=== PATIENT | male | born 1960 | race Hispanic/Latino ===

== ENCOUNTER 2019-02-02 01:45 | Emergency (ER) | payer SELFPAY ==
[~2019-02-02] VITALS: Ht 165.1 cm; Wt 80.0 kg
[~2019-02-02 01:45] MED LIST: ALEVE220 M2 OR; ASPIRIN81 MG PO; BACTRIM DS1 TAB PO; BACTROBAN TOP; BENADRYL 50MG C50 MG OR; DID NOT BRING MEDS; FLEXERIL10 MG OR; LOPRESSOR25 MG PO; LORTAB 5 OR; LORTAB5 OR; MEDDOSEPAK OR; NAPROXEN375 MG OR; NO HOME MEDS; ULTRAM50 M1 PO; VALIUM5 MG OR; ZOVIRAX800 MG OR
[2019-02-02] MEDS ORDERED: LISINOPRIL20 MG PO (01:58)
[2019-02-02 02:49] LABS: HEMATOCRIT 39.3 % (39.0-50.0); HEMOGLOBIN 13.7 g/dl (14.0-18.0); MEAN CELL VOLUME 90.3 fL CALC (80.0-100.0); MEAN CORPUSCULAR HGB 31.5 pG CALC (26.0-32.0); MEAN CORPUSCULAR HGB CONC 34.9 g/L CALC (32.0-36.0); NEUT# 1.83 thou/uL (1.82-7.42); RED BLOOD COUNT 4.35 mill/uL (4.70-6.10)
[2019-02-02 03:01] LABS: ALBUMIN 4.2 g/dL (3.2-5.0); ALKALINE PHOSPHATASE 156 u/l (38-126); ANION GAP 13 (6-22 (CALC)); BILIRUBIN, TOTAL 1.2 mg/dL (0.0-1.4); BUN 14 mg/dL (9-20); BUN/CREATININE RATIO 26 (12-20 (CALC)); CARBON DIOXIDE 25 mmol/l (22-30); CHLORIDE 104 mmol/l (95-108); CREATININE 0.5 mg/dL (0.7-1.3); GFR > 60 ML/MIN (>=60 (CALC)); GFR FOR AFR.AMER. > 60 ML/MIN (>=60 (CALC)); POTASSIUM 3.3 mmol/l (3.5-5.1); SGOT/AST 91 u/l (17-59); SODIUM 139 mmol/l (137-146); TOTAL PROTEIN 7.7 g/dL (6.3-8.2)
[2019-02-02] MEDS ORDERED: FIORICET PO (03:56)
[2019-02-02] MEDS ORDERED: GENTAMICIN SULF5 ML OU (03:56)
[2019-02-02 03:57] VITALS: BP 157/79
== END 2019-02-02 03:57 | disposition home or self-care (01) | DRG 103 ==
LOC: ED 01:45
PROVIDERS: Emergency Medicine
DX: G43.909 Migraine, unspecified, not intractable, without status migrainosus (principal); H10.9 Unspecified conjunctivitis; I10 Essential (primary) hypertension

== ENCOUNTER 2020-02-29 01:10 | Emergency (ER) | payer SELFPAY ==
[~2020-02-29] VITALS: Ht 165.1 cm; Wt 63.6 kg
[~2020-02-29 01:10] MED LIST changes: +FIORICET PO; +GENTAMICIN SULF5 ML OU; +LISINOPRIL20 MG PO
[2020-02-29 02:05] LABS: HEMATOCRIT 39.9 % (39.0-50.0); HEMOGLOBIN 13.7 g/dl (14.0-18.0); MEAN CELL VOLUME 91.7 fL CALC (80.0-100.0); MEAN CORPUSCULAR HGB 31.5 pG CALC (26.0-32.0); MEAN CORPUSCULAR HGB CONC 34.3 g/dL CAL (32.0-36.0); NEUT# 2.01 thou/uL (1.82-7.42); RED BLOOD COUNT 4.35 mill/uL (4.70-6.10); RED CELL DISTRI WIDTH 11.9 % (11.5-15.5)
[2020-02-29 02:05] LABS: URINE BILIRUBIN - DIPSTICK NEGATIVE (NEGATIVE); URINE BLOOD DIPSTICK SMALL (NEGATIVE); URINE COLOR YELLOW; URINE GLUCOSE - DIPSTICK NEGATIVE (NEGATIVE); URINE KETONE NEGATIVE (NEGATIVE); URINE LEUK ESTERASE NEGATIVE (NEGATIVE); URINE NITRITE - DIPSTICK NEGATIVE (Negative); URINE PROTEIN - DIPSTICK NEGATIVE (NEG-TRACE); URINE SPECIFIC GRAVITY 1.025
[2020-02-29 02:13] LABS: URINE SQUAMOUS EPITHELIAL CELL FEW EPI/hpf (0-FEW); URINE WBC 0-2 WBC/hpf (0-5)
[2020-02-29 02:15] LABS: ALBUMIN 3.8 g/dL (3.2-5.0); ALKALINE PHOSPHATASE 175 u/l (38-126); ANION GAP 11 (6-22 (CALC)); BUN 13 mg/dL (9-20); BUN/CREATININE RATIO 23 (12-20 (CALC)); CARBON DIOXIDE 26 mmol/l (22-30); CHLORIDE 108 mmol/l (95-108); CREATININE 0.6 mg/dL (0.7-1.3); ETHYL ALCOHOL 19 mg/dl (0-30); GFR > 60 ML/MIN (>=60 (CALC)); GFR FOR AFR.AMER. > 60 ML/MIN (>=60 (CALC)); POTASSIUM 3.8 mmol/l (3.5-5.1); SGOT/AST 127 u/l (17-59); SODIUM 141 mmol/l (137-146); TOTAL PROTEIN 7.3 g/dL (6.3-8.2)
[2020-02-29 02:16] LABS: BILIRUBIN, TOTAL 0.6 mg/dL (0.0-1.4)
[2020-02-29 03:20] VITALS: BP 139/72
== END 2020-02-29 03:20 | disposition home or self-care (01) | DRG 103 ==
LOC: ED 01:10
PROVIDERS: Family Medicine
DX: R51.9 Headache, unspecified (principal); F19.10 Other psychoactive substance abuse, uncomplicated; I10 Essential (primary) hypertension

== ENCOUNTER 2022-01-31 00:48 | Emergency (ER) | payer SELFPAY ==
[~2022-01-31] VITALS: Ht 165.1 cm; Wt 90.0 kg
[2022-01-31 01:16] VITALS: BP 130/76
[2022-01-31 01:23] LABS: HEMATOCRIT 37.6 % (39.0-50.0); HEMOGLOBIN 12.7 g/dl (14.0-18.0); IMMATURE GRANULOCYTES 0.2 % (0.0-5.0); MEAN CELL VOLUME 92.8 fL CALC (80.0-100.0); MEAN CORPUSCULAR HGB 31.4 pG CALC (26.0-32.0); MEAN CORPUSCULAR HGB CONC 33.8 g/dL CAL (32.0-36.0); NEUT# 2.71 thou/uL (1.82-7.42); RED BLOOD COUNT 4.05 mill/uL (4.70-6.10); RED CELL DISTRI WIDTH 12.4 % (11.5-15.5)
[2022-01-31 01:30] VITALS: BP 137/77
[2022-01-31 01:38] LABS: D-DIMER 1.12 mg/L (0.19-0.60)
[2022-01-31 01:45] VITALS: BP 132/75
[2022-01-31 01:45] LABS: ACT PARTIAL THROMBO TIME 27.5 SECONDS (20.0-32.5); ALBUMIN 3.9 g/dL (3.2-5.0); ALKALINE PHOSPHATASE 222 u/l (38-126); ANION GAP 13 (6-22 (CALC)); BILIRUBIN, TOTAL 0.8 mg/dL (0.0-1.4); BUN 13 mg/dL (8-23); BUN/CREATININE RATIO 22 (12-20 (CALC)); CARBON DIOXIDE 25 mmol/l (22-30); CHLORIDE 105 mmol/l (95-108); CREATININE 0.6 mg/dL (0.7-1.3); ETHYL ALCOHOL 16 mg/dl (0-30); GFR FOR AFR.AMER. > 60 ML/MIN (>=60 (CALC)); GFR OTHER RACES > 60 ML/MIN (>=60 (CALC)); INTERNATIONAL NORMALIZED RATIO 1.1 RATIO (0.7-1.3); LIPASE 109 u/l (23-300); POTASSIUM 3.1 mmol/l (3.5-5.1); SGOT/AST 100 u/l (19-48); SODIUM 140 mmol/l (137-146); TOTAL PROTEIN 7.3 g/dL (6.3-8.2)
[2022-01-31 01:56] LABS: MYOGLOBIN 52 ng/mL (0 - 121)
[2022-01-31 02:00] VITALS: BP 143/74
[2022-01-31 02:15] VITALS: BP 141/79
[2022-01-31 06:17] LABS: URINE BILIRUBIN - DIPSTICK NEGATIVE (NEGATIVE); URINE BLOOD DIPSTICK TRACE-INTACT (NEGATIVE); URINE COLOR YELLOW; URINE GLUCOSE - DIPSTICK NEGATIVE (NEGATIVE); URINE KETONE NEGATIVE (NEGATIVE); URINE LEUK ESTERASE NEGATIVE (NEGATIVE); URINE PROTEIN - DIPSTICK NEGATIVE (NEG-TRACE)
[2022-01-31 06:19] LABS: URINE NITRITE - DIPSTICK NEGATIVE (Negative)
[2022-01-31 06:51] VITALS: BP 141/79
== END 2022-01-31 06:57 | disposition home or self-care (01) | DRG 313 ==
LOC: ED 00:48
PROVIDERS: Family Medicine
DX: R07.9 Chest pain, unspecified (principal); F15.10 Other stimulant abuse, uncomplicated
CPT/HCPCS: Q9967

== ENCOUNTER 2024-04-26 09:52 | Emergency (ER) | payer SELFPAY ==
[2024-04-26] VITALS (14 sets, daily range): BP systolic 108–175; BP diastolic 60–101
[~2024-04-26] VITALS: Ht 165.1 cm; Wt 77.0 kg
[2024-04-26] MEDS ORDERED: ASPIRIN 81 MG/TAB PO ONE (10:15)
[2024-04-26] MEDS ORDERED: KETOROLAC TROMETHAMINE 30 MG/ML SDV IV ONE (10:15)
[2024-04-26 10:28] LABS: BASO% 0.5 % (0-3); EOS% 3.7 % (0-8); HEMATOCRIT 42.6 % (39.0-50.0); IMMATURE GRANULOCYTES 0.1 % (0.0-5.0); LYMPH% 13.9 % (15-41); MEAN CELL VOLUME 90.3 fL CALC (80.0-100.0); MEAN CORPUSCULAR HGB 31.1 pG CALC (26.0-32.0); MEAN CORPUSCULAR HGB CONC 34.5 g/dL CAL (32.0-36.0); MONO% 9.4 % (2-13); NEUT% 72.4 % (42-76); RED BLOOD COUNT 4.72 mill/uL (4.70-6.10); RED CELL DISTRI WIDTH 12.8 % (11.5-15.5)
[2024-04-26 10:32] LABS: HEMOGLOBIN 14.7 g/dl (14.0-18.0)
[2024-04-26 10:39] LABS: ALBUMIN 4.1 g/dL (3.2-5.0); CREATININE 0.7 mg/dL (0.7-1.3); POTASSIUM 3.4 mmol/l (3.5-5.1); TOTAL PROTEIN 7.7 g/dL (6.3-8.2)
[2024-04-26 10:41] LABS: D-DIMER 2.41 mg/L (0.19-0.60)
[2024-04-26 10:42] LABS: BILIRUBIN, TOTAL 1.7 mg/dL (0.2-1.3)
[2024-04-26 10:49] LABS: PROTHROMBIN TIME 11.2 SECONDS (9.0-12.5)
== END 2024-04-26 13:20 | disposition home or self-care (01) | DRG 313 ==
LOC: ED 09:52
PROVIDERS: Family Medicine
DX: R07.89 Other chest pain (principal); I10 Essential (primary) hypertension
CPT/HCPCS: Q9967